=== PATIENT | male | born 1960 | race Caucasian/White ===

== ENCOUNTER → 2020-12-23 10:00 | Outpatient (BNVA) | payer OTHER, SELFPAY | PROVIDERS: Visit Provider Physician Assistant | DX: S62.002G Unspecified fracture of navicular [scaphoid] bone of left wrist, subsequent encounter for fracture with delayed healing (principal); X58.XXXD Exposure to other specified factors, subsequent encounter | CPT/HCPCS: 29125; 73110; 99203 ==